=== PATIENT | female | born 1970 | race Caucasian/White ===

== ENCOUNTER 2018-01-02 13:41 | Emergency (ER) | payer BC ==
[~2018-01-02] VITALS: Ht 152.4 cm; Wt 117.4 kg
[2018-01-02 14:43] LABS: INTERNATIONAL NORMALIZED RATIO 0.97 (0.93-1.1)
[2018-01-02 14:44] LABS: BASOPHILS # (AUTO) 0.05 x10^3/uL (0-0.1); BASOPHILS % (AUTO) 0 % (0-1); EOSINOPHILS # (AUTO) 0.03 x10^3/uL (0-0.4); EOSINOPHILS % (AUTO) 0 % (1-7); LYMPHOCYTES # (AUTO) 1.05 x10^3/uL (1-3.4); LYMPHOCYTES % (AUTO) 8 % (22-44); MD NO; MEAN CORPUSCULAR HEMOGLOBIN 31.2 pg (27.0-34.8); MEAN CORPUSCULAR HGB CONC 33.7 g/dL (32.4-35.8); MEAN CORPUSCULAR VOLUME 92.4 fL (80-100); MEAN PLATELET VOLUME 8.9 fL (7.4-10.4); MONOCYTES # (AUTO) 0.74 x10^3/uL (0.2-0.8); MONOCYTES % (AUTO) 5 % (2-9); NEUTROPHILS # (AUTO) 11.92 x10^3/uL (1.8-6.8); NEUTROPHILS % (AUTO) 86 % (42-75); PLATELET COUNT 288 x10^3/uL (130-400); RED BLOOD COUNT 4.32 x10^6/uL (3.82-5.3)
[2018-01-02] MEDS ORDERED: ENAL5TAB PO (16:03)
[2018-01-02] MEDS ORDERED: MORPHINE SULFATE 4 MG/ML, 1ML ONE ×2 (17:00→17:59)
[2018-01-02] MEDS: MORPHINE SULFATE 4 MG/ML, 1ML IVPush PRN ×2 (17:02→18:01)
[2018-01-02] MEDS ORDERED: OMNIPAQUE 350 MG/ML, 100ML BOTTLE ONE (17:53)
[2018-01-02] MEDS ORDERED: KETOROLAC 30 MG/1 ML ONE (18:49)
[2018-01-02 18:51] VITALS: BP 136/86
[2018-01-02] MEDS ORDERED: KETOROLAC 30 MG/1 ML IVPush ONE (19:00)
[2018-01-02] MEDS ORDERED: CEFTRIAXONE PMX 1GM/50ML 50 ML ONE (20:29)
[2018-01-02] MEDS ORDERED: CEFTRIAXONE PMX 1GM/50ML 50 ML IV ONE (20:30)
[2018-01-02] MEDS ORDERED: HYDROcodone/APAP 5/325 TABLET ONE (21:09)
[2018-01-02] MEDS ORDERED: HYDROcodone/APAP 5/325 TABLET PO ONE (21:30)
== END 2018-01-02 21:24 | disposition home or self-care (01) ==
LOC: ED 19:02
DX: L03.221 Cellulitis of neck (principal); I10 Essential (primary) hypertension; K21.9 Gastro-esophageal reflux disease without esophagitis
CPT/HCPCS: 36415; 70491; 85025; 85610; 85730; 93005; 96365; 96375; 96376; 99285; J0696; J1885; Q9967

== ENCOUNTER 2021-07-12 16:29 | Emergency (ER) | payer BC, MEDICAID ==
[~2021-07-12] VITALS: Ht 162.6 cm; Wt 114.1 kg
[~2021-07-12 16:29] MED LIST: ENAL5TAB10 PO
--- NOTE | 2021-07-12 17:10 | NUR ---
PATIENT WALKED BACK FROM [facility] WITH CHIEF C/O SOB, FATIGUE, LOSS OF TASTE AND SMELL SINCE YESTERDAY. NO KNOWN SICK CONTACTS. NADN, CONNECTED TO MONITOR, VSS, CALL LIGHT WITHIN REACH.
[2021-07-12 17:14] VITALS: BP 156/99
--- NOTE | 2021-07-12 17:22 | NUR ---
COVID SWAB COLLECTED AND WALKED TO LAB.
--- NOTE | 2021-07-12 17:45 | NUR ---
Patient given discharge instructions and they have confirmed that they understand the instructions. Patient ambulatory with steady gait. NAD, all questions answered appropriately, denies additional needs at this time. No personal belongings left in room after discharge.
== END 2021-07-12 17:46 | disposition home or self-care (01) ==
LOC: ED 17:00
DX: U07.1 COVID-19 (principal); J06.9 Acute upper respiratory infection, unspecified
CPT/HCPCS: 71045; 99284; U0003; U0005